=== PATIENT | male | born 1940 | race Caucasian/White ===

== ENCOUNTER 2021-06-09 13:34 | Outpatient (CLI) | payer OTHER ==
[2021-06-09 17:23] LABS: SARS-CoV-2 NAA Rapid Test Not Detected (NotDetected)
== END 2021-06-09 13:35 | disposition home or self-care (01) ==
LOC: LABBT 13:34
PROVIDERS: ATTEND Orthopaedic Surgery
DX: Z01.818 Encounter for other preprocedural examination (principal); S52.502A Unspecified fracture of the lower end of left radius, initial encounter for closed fracture; Z20.822 Contact with and (suspected) exposure to COVID-19
CPT/HCPCS: 93005; 93010; U0002

== ENCOUNTER 2021-06-11 10:29 | Day surgery (SDC) | payer OTHER ==
[2021-06-09 15:45] VITALS: BMI 25.0
[2021-06-11] MEDS ORDERED: ceFAZolin 2 GM/DEX 5% 100 ML BAG ONE (10:34)
[2021-06-11] MEDS ORDERED: Midazolam HCl 2 mg/2 ml Vial ONE (11:03)
[2021-06-11] MEDS ORDERED: Fentanyl 100 MCG/2 ML VIAL ONE (11:03)
[2021-06-11] MEDS ORDERED: PHENYLEPHRINE-NS 100 MCG/ML 10 ML SYRINGE ONE (13:18)
[2021-06-11] MEDS ORDERED: Bupivacaine HCl 0.5%/Epinephrine 1:200,000/PF 30 ml Vial ONE (13:18)
[2021-06-11] MEDS ORDERED: Dexamethasone 20 MG/5 ML VIAL ONE (13:18)
[2021-06-11] MEDS ORDERED: Lidocaine 1% PF 5 ML VIAL ONE (13:18)
[2021-06-11] MEDS ORDERED: PROPOFOL 200 MG/20 ML VIAL ONE (13:18)
[2021-06-11] MEDS ORDERED: Ondansetron PF 4 MG/2 ML Vial ONE (13:18)
[2021-06-11] MEDS ORDERED: Phenylephrine 10 MG/ML VIAL ONE (13:36)
[2021-06-11] MEDS ORDERED: hydrALAZINE 20 MG/ML VIAL ONE (15:21)
== END 2021-06-11 16:46 | disposition home or self-care (01) ==
LOC: SDC 10:29
PROVIDERS: ATTEND Orthopaedic Surgery
PROC: 0PSJ04Z Reposition Left Radius with Internal Fixation Device, Open Approach (ICD-10-PCS; principal; 2021-06-11)
PROC: 3E0T3BZ Introduction of Anesthetic Agent into Peripheral Nerves and Plexi, Percutaneous Approach (ICD-10-PCS; principal; 2021-06-11)
DX: S52.572A Other intraarticular fracture of lower end of left radius, initial encounter for closed fracture (principal); S52.612A Displaced fracture of left ulna styloid process, initial encounter for closed fracture; I10 Essential (primary) hypertension; Z87.891 Personal history of nicotine dependence; Z79.899 Other long term (current) drug therapy; W54.1XXA Struck by dog, initial encounter
CPT/HCPCS: 76000; C1713; J0360; J1100; J2250; J2370; J2405; J2704; J3010